=== PATIENT | female | born 1985 | race Caucasian/White ===

== ENCOUNTER → 2016-07-26 | Outpatient (CLI) | payer BC ==
[~2016-07-26] MED LIST: AUGMENTIN PO; BENTYL20 MG PO; KEFLEX500 M1 PO; NAPROSYN500 MG PO; NAPROXEN PO; TYLENOL #3 PO
--- NOTE | ~2016-07-26 | MR189 ---
[facility] A Service of [facility] & [facility] RADIOLOGY TEXT RESULTS PATIENT: RENY COLINDRES LOCATION: [facility] : 85 UNIT #: [id number] AGE: [address]: Shemar Huang MD SEX: F ORDER DR: [id number] [facility] [address] [place], [place] [address] [id number] O MR#: [id number] Acc #: [id number] NAME: RENY COLINDRES : 1985 SEX: F STUDY DATE/TIME: 07/26/2016 8:21 UNIT: [facility] ROOM: STUDY DESCRIPTION: MRV Head Wo Contrast Attending Physician: Shemar Huang M.D. Referring Physician: Shemar Huang M.D. Ordering Physician: Shemar Huang M.D. Primary Care Physician: Xiomara Carmichael M.D. MRI CENTER REPORT This report is preliminary unless electronic signature is present. EXAM MR venogram of the head without contrast dated 07/26/2016. COMPARISON MRI brain with and without contrast dated 07/26/2016. HISTORY Headaches for last 3-4 months, blurry vision for the last 6-8 months. FINDINGS Source and 3-D reconstruction MIP images of the main dural venous sinuses have been performed as per the protocol. Patient head rotation limits evaluation. The right transverse sinus is barely seen in the medial to mid aspect very lateral aspect of the right transverse sinus, right sigmoid sinus. There is some flow noted and it is smaller when compared to the left. No obvious filling defects are noted in the right transverse sinus. Superior sagittal sinus, straight sinus, torcular herophili, left transverse sinus and left sigmoid sinus are within normal limits. IMPRESSION 1. The right transverse sinus is not well seen. It could be very hypoplastic or it could be related to chronic thrombosis if there has been a prior history. No obvious filling defects or well-defined thrombus is discerned when read in conjunction with the MRI brain study from the same day. 2. The right lateral aspect of the transverse sinus, right sigmoid sinus is asymmetrically smaller when compared to the left. It is probably a congenital appearance. 3. Superior sagittal sinus, left transverse sinus and sigmoid sinus are within normal limits. Dictated by... Pita Sagastume M.D. [facility] A Service of [facility] RADIOLOGY TEXT RESULTS PATIENT: RENY COLINDRES LOCATION: [facility] : 85 UNIT #: [id number] AGE: [address]: Shemar Huang MD SEX: F ORDER DR: THIS IS AN ELECTRONICALLY VERIFIED REPORT Pita Sagastume M.D. at 07/27/2016 2:57 PM CPR/rnr TD: 07/26/2016 13:59 JOB #: [id number] MRI CENTER REPORT Page 1 of 1 COPY
--- NOTE | ~2016-07-26 | MR17 ---
[facility] A Service of [facility] RADIOLOGY TEXT RESULTS PATIENT: RENY COLINDRES [facility] UNIT #: [id number] AGE: [address]: Shemar Huang MD SEX: F ORDER DR: [id number] [facility] [address] [place], [place] [address] [id number] O MR#: [id number] Acc #: [id number] NAME: RENY COLINDRES : 1985 SEX: F STUDY DATE/TIME: 07/26/2016 8:36 UNIT: [facility] ROOM: STUDY DESCRIPTION: MR Brain WWo Contrast Attending Physician: Shemar Huang M.D. Referring Physician: Shemar Huang M.D. Ordering Physician: Shemar Huang M.D. Primary Care Physician: Xiomara Carmichael M.D. MRI CENTER REPORT This report is preliminary unless electronic signature is present. EXAM MRI of the brain with and without contrast dated 07/26/2016. COMPARISON STUDIES MRV head dated 07/26/2016. HISTORY Headaches for the last 3-4 months, blurry vision for the last 6-8 months. Patient has difficulty seeing long distanced. She works at a computer all day. FINDINGS Multisequence, multiplanar imaging of the brain was obtained with and without contrast. 20 mL of MultiHance was administered intravenously. Age-appropriate parenchymal volume loss is seen. No acute stroke, enhancing mass, mass effect, midline shift, or hydrocephalus. Thick slices through the sella with the pituitary gland, pineal region, and upper cervical spine do not demonstrate any significant abnormality. Images orbits with the ocular structures, mastoids are unremarkable. There is small nodular mucosal thickening in the left maxillary antrum which does not enhance. They are probably small mucous retention cysts. Nasal septum is slightly deviated to the left. IMPRESSION No demonstrable intracranial abnormality. Dictated by... Pita Sagastume M.D. THIS IS AN ELECTRONICALLY VERIFIED REPORT [facility] A Service of [facility] RADIOLOGY TEXT RESULTS PATIENT: RENY COLINDRES LOCATION: [facility] : 85 UNIT #: [id number] AGE: [address]: Shemar Huang MD SEX: F ORDER DR: Pita Sagastume M.D. at 07/27/2016 2:57 PM CPR/tmw TD: 07/26/2016 13:52 JOB #: [id number] MRI CENTER REPORT Page 1 of 1 COPY
[2016-07-26 10:14] LABS: CALCIUM SERUM 9.2 mg/dL (8.4-10.2); CREATININE SERUM 0.9 mg/dL (0.6-1.4); GLOM FILT RATE Estimated 85.9 mL/min (>60); POTASSIUM 3.9 mmol/L (3.5-5.1)
== END | disposition home or self-care (01) ==
LOC: CMRI 07:42
PROVIDERS: Ophthalmology
DX: R51 Headache (principal); H53.8 Other visual disturbances; H53.40 Unspecified visual field defects
CPT/HCPCS: 36415; 70544; 70553; 80048; A9577

== ENCOUNTER 2016-09-26 12:26 | Emergency (ER) | payer OTHER ==
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
== END 2016-09-26 14:11 | disposition home or self-care (01) ==
LOC: CFTX 12:26 → CED 12:26 → CFTX 13:42
DX: S13.4XXA Sprain of ligaments of cervical spine, initial encounter (principal); S23.3XXA Sprain of ligaments of thoracic spine, initial encounter; S33.5XXA Sprain of ligaments of lumbar spine, initial encounter; F32.9 Major depressive disorder, single episode, unspecified; F41.9 Anxiety disorder, unspecified; Z88.8 Allergy status to other drugs, medicaments and biological substances; V89.2XXA Person injured in unspecified motor-vehicle accident, traffic, initial encounter; Y92.410 Unspecified street and highway as the place of occurrence of the external cause
CPT/HCPCS: 71101; 72040; 72072; 72100; 73562; 73590; 96372; 99284; J1885